=== PATIENT | male | born 1995 | race Caucasian/White ===

== ENCOUNTER 2022-06-08 13:01 | Outpatient (CLI) | payer OTHER ==
--- NOTE | 2022-06-08 15:14 | MRI Report ---
PROCEDURE: ANKLE WO - RT INDICATIONS: ANKLE PAIN TECHNIQUE: Noncontrast Magnetic Resonance Imaging (MRI) of the ankle/hindfoot was performed utilizing the follow ing sequences: sagittal T1 spin echo, sagittal T2 fast spin echo with fat saturation, axial PD fast s pin echo, axial T2 fast spin echo with fat saturation, coronal T1 spin echo, and coronal T2 fast spin echo with fat saturation. COMPARISON: None. FINDINGS: Image quality: Excellent. Bones and joints: No acute trabecular bone injury or fracture. No hindfoot coalition. The ankle mortise is maintained. No osteochondral defect is seen at the talar dome. No significant degenerative changes are seen in t he midfoot or hindfoot. A lobular ganglion cyst is seen extending anterosuperiorly from the anterior mortise joint versus lateral sinus tarsi through the extensor retinaculum into the subcutaneous tissu es adjacent to the skin marker. The cyst measures approximately 2.1 x 0.9 x 1.2 cm. Medial structures: The deltoid ligament and the spring ligament are intact. There is mild distal posterior tibialis teno synovitis. The flexor digitorum longus and flexor hallucis longus tendons are intact. The posterior t ibial neurovascular bundle appears normal within the tarsal tunnel, without extrinsic mass effect. Lateral structures: The anterior and posterior distal tibiofibular ligaments are intact. The anterior talofibular ligamen t appears attenuated, consistent with a remote prior moderate grade sprain. The calcaneal fibular lig ament and posterior talofibular ligament are intact. The peroneus longus and peroneus brevis tendons are intact. The sinus tarsi demonstrates normal fatty signal. Anterior structures: The tibialis anterior, extensor hallucis longus, and extensor digitorum longus tendons appear intact. Posterior and plantar structures: The Achilles tendon is intact. The medial and lateral bands of the plantar fascia are within normal l imits. No disproportionate atrophy of the abductor digiti minimi muscle. IMPRESSION: 1.Remote prior moderate grade sprain of the anterior talofibular ligament. 2.Mild distal posterior tibialis tenosynovitis. 3.Lobular 2.1 cm ganglion cyst is seen extending anterosuperiorly from the mortise joint versus from the lateral sinus tarsi through the extensor retinaculum into the subcutaneous tissues. Reviewed by: Donte Casanova MD on 06/08/2022 3:13 PM PST Approved by: Donte Casanova MD on 06/08/2022 3:13 PM PST Station ID: [id number]
== END 2022-06-08 13:02 | disposition home or self-care (01) ==
LOC: DI 13:01
PROVIDERS: ATTEND Orthopaedic Surgery
DX: S93.491D Sprain of other ligament of right ankle, subsequent encounter (principal); M65.9 Synovitis and tenosynovitis, unspecified; M67.471 Ganglion, right ankle and foot